=== PATIENT | male | born 1970 | race Caucasian/White ===

== ENCOUNTER 2018-05-01 08:07 | Outpatient (CLI) ==
[2013-03-18 12:20] VITALS: TEMP 97.8
[2017-07-31 00:41] VITALS: BMI 37.6
--- NOTE | 2018-05-01 11:04 | US ---
EXAM: Abdominal ultrasound limited HISTORY: Right upper quadrant pain COMPARISON: CT abdomen pelvis 07/03/2017 and ultrasound 08/02/2015 with multiple priors TECHNIQUE: Sonographic and limited Doppler evaluation of the right upper quadrant was performed. FINDINGS: The liver is increased in echogenicity and measures enlarged at 19.3 cm. There is a hypoe choic nodule adjacent to the gallbladder measuring 1.5 x 1.0 x 1.4 cm likely representing focal fatty sparing. The portal vein is patent. The gallbladder demonstrates no stones or sludge. The gallbla dder wall measures 0.3 cm in thickness. Common bile duct is unremarkable and measures 0.[address] The pancreas is unremarkable in appearance. The right kidney measures 10.4 x 4.7 x 4.5 cm with cortical thickness of 1.3 cm. IMPRESSION: 1. Increased echogenicity of the liver likely representing hepatic steatosis with probable focal fat ty sparing in the gallbladder fossa. 2. The liver measures slightly enlarged for size.
== END 2018-05-01 08:08 | disposition home or self-care (01) ==
LOC: RAD 08:07
PROVIDERS: ATTEND Internal Medicine
DX: R10.11 Right upper quadrant pain (principal)